=== PATIENT | female | born 1985 | race American Indian/Alaskan Native ===

== ENCOUNTER 2016-11-08 17:24 | Outpatient (CLI) | payer OTHER ==
[2016-11-08] MEDS ORDERED: LACTATED RINGERS 500 ML IV ONE (17:45)
[2016-11-08 17:56] VITALS: BP 108/64
[2016-11-08 18:06] LABS: Bilirubin,Urine NEG (Negative); Blood,Urine NEG (Negative); Ketones,Urine NEG (Negative); Leukocyte Esterase,Urine TR (Negative); Mucus,Urine FEW /HPF; Nitrite,Urine NEG (Negative); Protein,Urine <15 mg/dL mg/dL (Negative); Urobilinogen,Urine < 2.0 mg/dL (<2.0)
--- NOTE | 2016-11-09 07:58 | Ultrasound Report ---
Limited OB pelvic and transvaginal sonography: History: Cervical length. Findings: Single intrauterine gestation with cephalic presentation. Cervical length 3.3 cm. heart rate 145 per minute. Impression: Findings as detailed above.
== END 2016-11-08 19:35 | disposition home or self-care (01) ==
LOC: TRG 17:24
PROVIDERS: ATTEND Obstetrics & Gynecology Gynecology
DX: O47.02 False labor before 37 completed weeks of gestation, second trimester (principal); Z3A.25 25 weeks gestation of pregnancy
CPT/HCPCS: 76815; 76830; 81001

== ENCOUNTER 2016-12-07 16:37 | Outpatient (CLI) | payer OTHER ==
[2016-12-07] MEDS ORDERED: LACTATED RINGERS 500 ML IV ONE (18:01)
[2016-12-07 19:36] LABS: Hematocrit 24.7 % (30.3-42.9); Hemoglobin 7.9 gm/dl (10.1-14.3); Mean Corpuscular HGB Conc 32 % (30-34); Mean Corpuscular Volume 74 fl (79-97); Platelet Count 296 K/mm3 (140-440); Red Blood Count 3.36 M/mm3 (3.65-5.03); Red Cell Distribution Width 19.4 % (13.2-15.2); White Blood Count 13.3 K/mm3 (4.5-11.0)
[2016-12-07 19:37] LABS: Mean Corpuscular Hemoglobin 24 pg (28-32)
[2016-12-07 19:40] LABS: Bacteria,Urine 4+ /HPF (Negative); Bilirubin,Urine NEG (Negative); Blood,Urine NEG (Negative); Ketones,Urine NEG (Negative); Leukocyte Esterase,Urine SM (Negative); Mucus,Urine FEW /HPF; Nitrite,Urine NEG (Negative); Urobilinogen,Urine < 2.0 mg/dL (<2.0)
[2016-12-07 19:57] LABS: Alanine Aminotransferase 7 units/L (7-56); Albumin 3.1 g/dL (3.9-5); Albumin/Globulin Ratio 0.9 %; Alkaline Phosphatase 85 units/L (35-129); Anion Gap 16 mmol/L; Blood Urea Nitrogen 6 mg/dL (7-17); Calcium 8.7 mg/dL (8.4-10.2); Carbon Dioxide 21 mmol/L (22-30); Chloride 99.5 mmol/L (98-107); Glucose 87 mg/dL (65-100); Sodium 132 mmol/L (137-145); Total Protein 6.5 g/dL (6.3-8.2)
[2016-12-07 20:27] LABS: Basophils % (Manual) 0 % (0.0-1.8); Blastocytes % (Manual) 0 %
[2016-12-07 20:28] LABS: Diff Status Complete; Hypochromasia 1+; Smudge Cells Few
[2016-12-07 20:43] VITALS: BP 112/55
== END 2016-12-07 21:15 | disposition home or self-care (01) ==
LOC: TRG 16:37
PROVIDERS: ATTEND Obstetrics & Gynecology Gynecology
DX: O47.03 False labor before 37 completed weeks of gestation, third trimester (principal); Z3A.29 29 weeks gestation of pregnancy
CPT/HCPCS: 36415; 80053; 81001; 85007; 85025; 96360

== ENCOUNTER 2017-01-02 15:37 | Outpatient (CLI) | payer OTHER ==
[2017-01-02 16:26] LABS: Bacteria,Urine 2+ /HPF (Negative); Bilirubin,Urine NEG (Negative); Blood,Urine NEG (Negative); Ketones,Urine NEG (Negative); Leukocyte Esterase,Urine NEG (Negative); Mucus,Urine FEW /HPF; Nitrite,Urine NEG (Negative); Protein,Urine <15 mg/dL mg/dL (Negative); Urobilinogen,Urine < 2.0 mg/dL (<2.0)
[2017-01-02] MEDS ORDERED: LACTATED RINGERS 500 ML IV ONE (17:00)
[2017-01-02] MEDS ORDERED: BRETHINE SUB-Q ONE ×2 (19:20→21:45)
[2017-01-02 20:22] VITALS: BP 123/58
== END 2017-01-02 23:05 | disposition home or self-care (01) ==
LOC: TRG 15:37
PROVIDERS: ATTEND Obstetrics & Gynecology
DX: O47.03 False labor before 37 completed weeks of gestation, third trimester (principal); Z3A.33 33 weeks gestation of pregnancy
CPT/HCPCS: 81001; 96360; 96372; J3105; J7120

== ENCOUNTER 2017-01-24 12:37 | Outpatient (CLI) | payer OTHER ==
[2017-01-24 14:01] VITALS: BP 117/63
== END 2017-01-24 14:15 | disposition home or self-care (01) ==
LOC: TRG 12:37
PROVIDERS: ATTEND Obstetrics & Gynecology
DX: O47.03 False labor before 37 completed weeks of gestation, third trimester (principal); Z3A.36 36 weeks gestation of pregnancy

== ENCOUNTER 2017-02-09 04:54 | Inpatient (IN) | payer OTHER ==
[2017-02-09] MEDS ORDERED: NARCAN 0.4 MG/1 ML IV PRN (07:56)
[2017-02-09] MEDS ORDERED: ePHEDrine SULFATE IV PRN ×2 (07:56→11:25)
[2017-02-09] MEDS ORDERED: PHENERGAN PO PRN ×2 (07:56→13:50)
[2017-02-09] MEDS ORDERED: ZOFRAN IV PRN ×2 (07:56→13:50)
[2017-02-09] MEDS ORDERED: BRETHINE IVP PRN (07:56)
[2017-02-09] MEDS ORDERED: SUBLIMAZE IV PRN (07:56)
[2017-02-09] MEDS ORDERED: BRETHINE SUB-Q PRN (07:56)
[2017-02-09] MEDS ORDERED: MINERAL OIL PO PRN (07:56)
[2017-02-09] MEDS ORDERED: XYLOCAINE 2% INFILTRATI ONE (07:56)
[2017-02-09] MEDS ORDERED: PITOCin/NS 20 UNIT/1000ML DRIP 20 UNITS/1,000 ML BAG IV SCH ×2 (08:00→14:00)
[2017-02-09] MEDS ORDERED: PITOCin/NS 30 UNIT/500ML 30 UNITS/500 ML BAG IV SCH (08:00)
--- NOTE | 2017-02-09 08:06 | History and Physical Report ---
History of Present Illness Date of examination: 02/09/17 Date of admission: 02/09/17 04:55 Chief complaint: Labor History of present illness: Pt is a 31yo BF EDC 02/17/17; EGA 38 6/7 weeks presents to L&D complaining of RUC's q 3-5 mins. She received care at [facility] since 18 weeks and course has been unremarkable. records are available and GBS is Negative. Past History Past Medical History: no pertinent history Past Surgical History: no surgical history Family/Genetic History: none Social history: no significant social history, - Obstetrical History Expected Date of Delivery: 02/17/17 Actual Gestation: 38 Week(s) 6 Day(s) : 6 Medications and Allergies Allergies Allergy/AdvReac Type Severity Reaction Status Date / Time morphine Allergy Severe Vomiting Verified 11/08/16 17:45 Home Medications Medication Instructions Recorded Confirmed Last Taken Type Ferrous Sulfate [Feosol 325 MG tab] 1 tab PO DAILY 01/24/17 01/24/17 Unknown History Pnv No.95/Ferrous Fum/Folic AC 1 tab PO DAILY 01/24/17 01/24/17 Unknown History [ Vitamins Tablet] Active Meds: Active Medications Ephedrine Sulfate (Ephedrine Sulfate) 10 mg IV Q2M PRN PRN Reason: Hypotension Stop: 02/09/17 08:01 Fentanyl (Sublimaze) 100 mcg IV Q2H PRN PRN Reason: Labor Pain Lactated Ringer's (Lactated Ringers) 1,000 mls @ 125 mls/hr IV DIRECT ROSAS Review of Systems All systems: negative - Physical Exam Breasts: Positive: deferred Cardiovascular: Regular rate Lungs: Positive: Clear to auscultation Abdomen: Positive: normal appearance Genitourinary (Female): Positive: normal external genitalia Vagina: Positive: normal moisture Uterus: Positive: enlarged Extremities: Positive: normal - Obstetrical FHR: category 1 Uterine Contraction Monitor Mode: External Cervical Dilatation: 3.5 Cervical Effacement Percentage: 60 station: -3 Uterine Contraction Pattern: Regular Uterine Tone Measurement Phase: Contraction Uterine Contraction Intensity: Moderate Results Result Diagrams: 02/09/17 08:45 All other labs normal. Assessment and Plan - Patient Problems (1) 39 weeks gestation of Onset Date: 02/09/17 Current Visit: Yes Status: Acute Plan to address problem: A: IUP @ 38 6/7 weeks in labor P: Admit to L&D for expectant vaginal delivery
[2017-02-09] MEDS ORDERED: PITOCin/NS 20 UNIT/1000ML DRIP IV ONE (08:58)
[2017-02-09] MEDS: LACTATED RINGERS 1,000 ML IV SCH ×2 (09:00→10:04)
[2017-02-09] MEDS ORDERED: PITOCin/NS 30 UNIT/500ML IV ONE (09:00)
[2017-02-09 09:24] LABS: Hematocrit 27.3 % (30.3-42.9); Hemoglobin 8.3 gm/dl (10.1-14.3); Mean Corpuscular HGB Conc 30 % (30-34); Platelet Count 309 K/mm3 (140-440); Red Blood Count 3.95 M/mm3 (3.65-5.03)
[2017-02-09 09:33] LABS: Mean Corpuscular Hemoglobin 21 pg (28-32); Mean Corpuscular Volume 69 fl (79-97); Red Cell Distribution Width 21.7 % (13.2-15.2)
[2017-02-09] MEDS ORDERED: fentaNYL-BUPIV 2 MCG/ML-0.125% 200 MCG/100 ML BAG EPIDURAL ONE (10:57)
--- NOTE | 2017-02-09 11:21 | Anesthesia Consultation ---
Anesthesia Consult and Med Hx Date of service: 02/09/17 - Airway Anesthetic Teeth Evaluation: Good ROM Head & Neck: Adequate Mental/Hyoid Distance: Adequate Intubation Access Assessment: Probably Good - Pre-Operative Health Status ASA Pre-Surgery Classification: ASA2, Emergency - Pulmonary Hx Asthma: No COPD: No Hx Pneumonia: No - Cardiovascular System Hx Hypertension: No - Central Nervous System Hx Seizures: No Hx Psychiatric Problems: No - Endocrine Hx Renal Disease: No Hx End Stage Renal Disease: No Hx Hypothyroidism: No Hx Hyperthyroidism: No - Hematic Hx Anemia: No Hx Sickle Cell Disease: No - Other Systems Hx Alcohol Use: No
[2017-02-09] MEDS: PITOCin/NS 30 UNIT/500ML 30 UNITS/500 ML BAG IV SCH ×2 (11:28→12:12)
[2017-02-09] MEDS ORDERED: fentaNYL-BUPIV 2 MCG/ML-0.125% 200 MCG/100 ML BAG EPIDURAL SCH (12:00)
--- NOTE | 2017-02-09 13:48 | Procedure Note ---
OB Delivery Note - Delivery Date of Delivery: 02/09/17 Surgeon: CARRIE PALACIOS Estimated blood loss: 200cc - Vaginal Delivery presentation: vertex Delivery position: OA Delivery induction: AROM Delivery augmentation: rupture of membranes, pitocin Delivery monitor: none Route of delivery: Delivery placenta: spontaneous Delivery cord: nuchal cord, 3 umbilical vessels Episiotomy: none Delivery laceration: 1st degree (perineal) Delivery repair: vicryl Anesthesia: epidural Delivery comments: delivered OA and placed on Mom's chest for [id number] bonding and delayed cord clamping. - Infant A at 1 minute: 8 at 5 minutes: 9 Infant Gender: Male ([id number])
[2017-02-09] MEDS ORDERED: DERMOPLAST TP PRN (13:50)
[2017-02-09] MEDS ORDERED: BENADRYL PO PRN (13:50)
[2017-02-09] MEDS ORDERED: PHENERGAN PR PRN (13:50)
[2017-02-09] MEDS ORDERED: TYLENOL PO PRN (13:50)
[2017-02-09] MEDS ORDERED: LANSINOH TP PRN (13:50)
[2017-02-09] MEDS ORDERED: MILK OF MAGNESIA PO PRN (13:50)
[2017-02-09] MEDS ORDERED: DULCOLAX PR PRN (13:50)
[2017-02-09] MEDS ORDERED: TUCKS PAD TP PRN (13:50)
[2017-02-09] MEDS ORDERED: SODIUM CHLORIDE FLUSH SYRINGE 10 ML IV SCH (14:00)
[2017-02-09] MEDS: MOTRIN PO SCH (18:12)
[2017-02-09] MEDS: NORCO 5/325 PO PRN (19:50)
[2017-02-10] MEDS: MOTRIN PO SCH ×5 (00:12→23:14)
[2017-02-10] MEDS: COLACE PO SCH ×3 (00:12→23:14)
[2017-02-10] MEDS: FEOSOL PO SCH ×3 (00:12→23:13)
[2017-02-10] MEDS: NORCO 5/325 PO PRN ×2 (02:41→10:02)
[2017-02-10] MEDS ORDERED: BOOSTRIX IM ONE (06:00)
[2017-02-10 06:16] LABS: Hemoglobin 7.5 gm/dl (10.1-14.3)
[2017-02-10] MEDS ORDERED: PRENATAL VITAMIN PO SCH (10:00)
--- NOTE | 2017-02-10 10:44 | Progress Note ---
Assessment and Plan - Patient Problems (1) 39 weeks gestation of Onset Date: 02/09/17 Current Visit: Yes Status: Resolved (2) (normal spontaneous vaginal delivery) Onset Date: 02/10/17 Current Visit: Yes Status: Resolved Plan to address problem: A: S/P - PPD #1 Doing well P: May go home tomorrow Subjective - Subjective Date of service: 02/10/17 Principal diagnosis: s/p - PPD #1 Interval history: Pt is feeling well without complaints. Bleeding improved. Patient reports: appetite normal, voiding normally, pain well controlled, flatus , ambulating normally : doing well, nursing well Objective - Vital Signs Latest vital signs: Vital Signs Temp Pulse Resp BP BP Pulse Ox 02/10/17 07:43 98.5 F 79 22 122/67 98 02/10/17 02:41 18 02/10/17 00:00 98.2 F 79 20 130/72 02/09/17 20:05 98.0 F 68 20 138/73 02/09/17 19:50 18 02/09/17 15:58 97.9 F 70 20 132/78 02/09/17 15:10 74 156/72 02/09/17 14:54 84 151/69 02/09/17 14:44 16 02/09/17 14:39 68 148/65 02/09/17 14:24 80 136/64 02/09/17 14:09 77 146/83 02/09/17 13:54 83 123/65 02/09/17 13:28 88 98 02/09/17 13:23 89 100 02/09/17 13:18 85 100 02/09/17 13:13 96 H 99 02/09/17 13:08 84 97 02/09/17 13:03 81 97 02/09/17 12:58 78 98 02/09/17 12:53 73 98 02/09/17 12:48 74 98 02/09/17 12:43 75 97 02/09/17 12:38 76 98 02/09/17 12:33 84 98 02/09/17 12:32 83 92 02/09/17 12:28 75 97 02/09/17 12:23 89 97 02/09/17 12:18 90 98 02/09/17 12:13 87 98 02/09/17 12:08 72 98 02/09/17 12:03 82 98 02/09/17 11:58 88 99 02/09/17 11:53 77 98 02/09/17 11:48 77 98 02/09/17 11:43 82 99 02/09/17 11:38 72 100 02/09/17 11:33 72 99 02/09/17 11:28 86 99 02/09/17 11:23 77 99 02/09/17 11:18 68 99 02/09/17 11:13 77 100 02/09/17 11:08 95 H 100 02/09/17 11:03 90 92 02/09/17 10:58 77 98 02/09/17 10:53 84 98 02/09/17 10:48 75 97 Intake and Output 02/09/17 02/10/17 02/10/17 22:59 06:59 14:59 Intake Total 480 240 Output Total 800 400 Balance -320 -160 Intake: Oral 240 Intake, Free Water 240 240 Output: Urine 800 400 Void 800 400 Other: Total, Intake Amount 240 Total, Output Amount 800 400 # Voids Void 500 - Exam Breasts: Present: deferred Cardiovascular: Present: Regular rate Lungs: Present: Clear to auscultation Abdomen: Present: normal appearance, soft Uterus: Present: normal, firm, fundal height below umbilicus Extremities: Present: normal - Labs Labs: Abnormal lab results 02/10/17 Range/Units 05:40 Hgb 7.5 L (10.1-14.3) gm/dl Hct 24.0 L (30.3-42.9) % Laboratory Tests 02/09/17 02/09/17 02/09/17 08:45 08:45 08:45 WBC 11.0 RBC 3.95 Hgb 8.3 L Hct 27.3 L MCV 69 L MCH 21 L MCHC 30 RDW 21.7 H Plt Count 309 RPR Nonreactive Blood Type O POSITIVE Antibody Screen TNR SUNIL Antibody Screen Negative 02/10/17 05:40 WBC RBC Hgb 7.5 L Hct 24.0 L MCV MCH MCHC RDW Plt Count RPR Blood Type Antibody Screen SUNIL Antibody Screen
--- NOTE | 2017-02-10 11:40 | Discharge Summary ---
Providers - Providers Date of Admission: 02/09/17 04:55 Date of discharge: 02/11/17 Attending physician: CARRIE PALACIOS Primary care physician: CARRIE PALACIOS Hospitalization Reason for admission: active labor, IUP at term Delivery: Episiotomy: none Laceration: 1st degree Other procedures: none complications: none Discharge diagnosis: IUP at term delivered [place] baby: male Hospital course: Unremarkable. Condition at discharge: Good Disposition: DC-01 TO HOME OR SELFCARE - Discharge Diagnoses (1) 39 weeks gestation of Status: Resolved (2) (normal spontaneous vaginal delivery) Status: Resolved Plan - Discharge Medications Prescriptions: Ferrous Sulfate [Feosol 325 MG tab] 325 mg PO BID #60 tablet Ibuprofen [Motrin 600 MG tab] 600 mg PO Q6HR #30 tablet Vit-Fe Fumar-FA [ Vitamin] 1 each PO QDAY #30 tablet - Provider Discharge Summary Activity: routine, no sex for 6 weeks, no heavy lifting 4 weeks, no strenuous exercise Diet: routine Instructions: routine Additional instructions: [] Smoking cessation referral if applicable(refer to patient education folder for contact #) [] Refer to [facility] Booklet Call your doctor immediately for: * Fever > 100.5 * Heavy vaginal bleeding ( >1 pad per hour) * Severe persistent headache * Shortness of breath * Reddened, hot, painful area to leg or breast * Drainage or odor from incision. * Keep incision clean and dry at all times and follow doctor's instructions regarding bathing/showering - Follow up plan Follow up: CARRIE PALACIOS MD [Primary Care Provider] - 6 Weeks
[2017-02-10] MEDS ORDERED: M-M-R II VACCINE SUB-Q ONE (13:50)
[2017-02-11] MEDS: NORCO 5/325 PO PRN (04:19)
[2017-02-11] MEDS: MOTRIN PO SCH ×2 (05:38→13:25)
[2017-02-11] MEDS: FEOSOL PO SCH (13:25)
[2017-02-11] MEDS: COLACE PO SCH (13:25)
[2017-02-11 15:43] VITALS: BP 124/68
== END 2017-02-11 15:30 | disposition home or self-care (01) | DRG 775 ==
LOC: TRG 04:54 → LD 04:55 → TRG 04:55 → OB 16:38
PROVIDERS: ADMIT Obstetrics & Gynecology; ATTEND Obstetrics & Gynecology
PROC: 10E0XZZ Delivery of Products of Conception, External Approach (ICD-10-PCS; principal; 2017-02-09)
PROC: 10907ZC Drainage of Amniotic Fluid, Therapeutic from Products of Conception, Via Natural or Artificial Opening (ICD-10-PCS; 2017-02-09)
PROC: 0HQ9XZZ Repair Perineum Skin, External Approach (ICD-10-PCS; 2017-02-09)
PROC: 00HU33Z Insertion of Infusion Device into Spinal Canal, Percutaneous Approach (ICD-10-PCS; 2017-02-09)
PROC: 3E0234Z Introduction of Serum, Toxoid and Vaccine into Muscle, Percutaneous Approach (ICD-10-PCS; 2017-02-10)
PROC: 3E0R3BZ Introduction of Anesthetic Agent into Spinal Canal, Percutaneous Approach (ICD-10-PCS; 2017-02-10)
DX: O69.81X0 Labor and delivery complicated by cord around neck, without compression, not applicable or unspecified (principal); Z3A.39 39 weeks gestation of pregnancy; Z37.0 Single live birth; O70.0 First degree perineal laceration during delivery; Z88.5 Allergy status to narcotic agent; Z23 Encounter for immunization
CPT/HCPCS: 36415; 85014; 85018; 85027; 86592; 86850; 86900; 86901; 99211; G0463; J2590; J3010; J7120